=== PATIENT | female | born 1960 | race Caucasian/White ===

== ENCOUNTER 2018-12-09 17:00 | Inpatient (IN) | payer BC ==
[~2018-12-09] VITALS: Ht 165.1 cm; Wt 55.2 kg
[2018-12-09 17:00] VITALS: Ht 165.1 cm; Wt 55.2 kg
[~2018-12-09 17:00] MED LIST: ACET325T45 PO; AMIN30LI PO; ATOR10TA65 PO; BISA10SU55 RC; CALC667C PO; CAND8TAB4 PO; CHOL100062 PO; CLON-379 PO; FOLI0.8T2 PO; HYDR-4011 PO; INSU100C SQ; INSU100I33 SC; IPRA3AMP29 INHALATION; MAGN400O19 PO; METO-319 PO; NA P133E39 RC; NITR0.4T32 SL; OMEP20CA17 PO; SODI1TAB2 PO; SPIR25TA PO; TELM40TA3 PO
[2018-12-09] MEDS ORDERED: SOD CHLORIDE 0.9% 500 ML IV STA (17:11)
[2018-12-09] MEDS ORDERED: MIDAZOLAM (DRIP) 50 mg/50 mL 50 ML IV STA (17:11)
[2018-12-09] MEDS ORDERED: NORepinephrine 8MG/250 ML (PMX 250 ML IV SCH (17:30)
[2018-12-09] MEDS ORDERED: CALCIUM GLUCONATE 10% 2 GM in DEXTROSE 5% 100 ML IVPB ONE (17:30)
[2018-12-09] MEDS: PIPER-TAZO 3.375 GM IV (PMX) 100 ML IVPB ONE ×2 (17:56→18:43)
[2018-12-09] MEDS ORDERED: VANCOMYCIN 1 GM (PMX) 250 ML IVPB ONE (18:30)
[2018-12-09] MEDS ORDERED: ONDANSETRON 4 MG INJ IV PRN (20:00)
[2018-12-09] MEDS ORDERED: NACL 0.9% 3 ML SYG IV SCH (20:00)
[2018-12-09] MEDS ORDERED: DEXTROSE 50% 50 ML SYRINGE IV PRN ×2 (22:30)
[2018-12-09] MEDS ORDERED: GLUCAGON 1 MG INJ IM PRN (22:30)
[2018-12-09] MEDS ORDERED: GLUCOSE GEL 15 GRAM TUBE BUCCAL PRN (22:30)
[2018-12-09] MEDS ORDERED: GLUCOSE GEL 15 GRAM TUBE PO PRN ×2 (22:30)
[2018-12-10] VITALS (97 sets, daily range): BP systolic 79–169; BP diastolic 45–108; PULSE 52–99; RESP 0–48
[2018-12-10] MEDS ORDERED: MIDAZOLAM (DRIP) 50 mg/50 mL 50 ML IV SCH (01:30)
[2018-12-10] MEDS ORDERED: NORepinephrine 8MG/250 ML (PMX 250 ML IV SCH (01:30)
[2018-12-10] MEDS: PIPER-TAZO 2.25 GM (PMX) 50 ML IVPB SCH ×4 (01:30→22:20)
[2018-12-10] MEDS: ACCU-CHEK XX SCH ×9 (01:46→23:41)
[2018-12-10] MEDS: INSULIN ASPART [NOVOLOG] 3 ML PEN SC SCH ×3 (02:38→09:11)
[2018-12-10] MEDS: PANTOPRAZOLE 40 MG INJ IV SCH (06:06)
[2018-12-10] MEDS ORDERED: ACETAMINOPHEN 650MG/20.3ML CUP PO PRN (13:00)
[2018-12-10] MEDS ORDERED: MEPERIDINE 25 MG INJ IV PRN ×2 (13:00)
[2018-12-10] MEDS ORDERED: DEXTROSE 50% 50 ML SYRINGE IV PRN ×2 (13:00)
[2018-12-10] MEDS ORDERED: ACETAMINOPHEN 650 MG SUPP PR PRN (13:00)
[2018-12-10] MEDS ORDERED: MAGNESIUM SULFATE 2 GM/50 ML 50 ML IVPB PRN (13:00)
[2018-12-10] MEDS ORDERED: POTASSIUM CHLORIDE 50 ML IVPB ONE (13:00)
[2018-12-10] MEDS: ARTIFICIAL TEARS 15 ML OPH BOTH EYES SCH ×5 (15:00→23:38)
[2018-12-10] MEDS: MIDAZOLAM (DRIP) 50 mg/50 mL 50 ML IV SCH (15:05)
[2018-12-10] MEDS: FENTAnyl (DRIP) 1000 mcg/100mL 100 ML IV SCH (15:06)
[2018-12-10] MEDS: VECURONIUM 100 MG in DEXTROSE 5% 100 ML IV SCH (15:41)
[2018-12-10] MEDS ORDERED: OCULAR LUBRICANT 3.5 GM OPH OINT BOTH EYES SCH (18:00)
[2018-12-10] MEDS: OCULAR LUBRICANT 3.5 GM OPH OINT BOTH EYES SCH ×2 (18:17→23:38)
[2018-12-10] MEDS: NORepinephrine 8MG/250 ML (PMX 250 ML IV SCH (20:40)
[2018-12-11] VITALS (95 sets, daily range): BP systolic 43–185; BP diastolic 35–82; PULSE 61–115; RESP 0–24
[2018-12-11] MEDS: ACCU-CHEK XX SCH ×9 (04:04→23:00)
[2018-12-11] MEDS: INSULIN HUMAN REGULAR 100 UNIT in SOD CHLORIDE 0.9% 99 ML IV SCH (05:02)
[2018-12-11] MEDS: PIPER-TAZO 2.25 GM (PMX) 50 ML IVPB SCH ×3 (06:11→21:24)
[2018-12-11] MEDS: ARTIFICIAL TEARS 15 ML OPH BOTH EYES SCH ×4 (06:12→23:58)
[2018-12-11] MEDS: OCULAR LUBRICANT 3.5 GM OPH OINT BOTH EYES SCH ×4 (06:12→23:58)
[2018-12-11] MEDS: PANTOPRAZOLE 40 MG INJ IV SCH (06:12)
[2018-12-11] MEDS: VECURONIUM 100 MG in DEXTROSE 5% 100 ML IV SCH (09:42)
[2018-12-11] MEDS ORDERED: ACETAMINOPHEN 650MG/20.3ML CUP PO SCH (13:00)
[2018-12-11] MEDS: ACETAMINOPHEN 650 MG SUPP PR SCH ×2 (13:00→20:16)
[2018-12-11] MEDS ORDERED: ASPIRIN 81 MG TAB PO SCH (20:00)
[2018-12-11] MEDS ORDERED: ATORVASTATIN 20 MG TAB PO SCH (21:00)
[2018-12-11] MEDS ORDERED: ACETAMINOPHEN 650MG/20.3ML CUP NGT PRN (21:00)
[2018-12-11] MEDS: ATORVASTATIN 20 MG TAB NGT SCH (21:24)
[2018-12-11] MEDS: MIDAZOLAM (DRIP) 50 mg/50 mL 50 ML IV SCH (23:21)
[2018-12-11] MEDS: NORepinephrine 8MG/250 ML (PMX 250 ML IV SCH (23:59)
[2018-12-12] VITALS (118 sets, daily range): BP systolic 44–181; BP diastolic 28–129; PULSE 65–116; RESP 0–28
[2018-12-12] MEDS: ACCU-CHEK XX SCH ×24 (00:31→23:00)
[2018-12-12] MEDS: ACETAMINOPHEN 650 MG SUPP PR SCH ×4 (01:00→18:12)
[2018-12-12] MEDS: ACETAMINOPHEN 650MG/20.3ML CUP NGT SCH ×4 (01:42→18:11)
[2018-12-12] MEDS: PANTOPRAZOLE 40 MG INJ IV SCH (05:22)
[2018-12-12] MEDS: PIPER-TAZO 2.25 GM (PMX) 50 ML IVPB SCH ×3 (05:22→23:03)
[2018-12-12] MEDS: OCULAR LUBRICANT 3.5 GM OPH OINT BOTH EYES SCH ×4 (05:22→23:49)
[2018-12-12] MEDS: ARTIFICIAL TEARS 15 ML OPH BOTH EYES SCH ×4 (05:22→23:49)
[2018-12-12] MEDS: FENTAnyl (DRIP) 1000 mcg/100mL 100 ML IV SCH (08:36)
[2018-12-12] MEDS: ASPIRIN 81 MG TAB NGT SCH (10:12)
[2018-12-12] MEDS: VECURONIUM 100 MG in DEXTROSE 5% 100 ML IV SCH (12:07)
[2018-12-12] MEDS: INSULIN HUMAN REGULAR 100 UNIT in SOD CHLORIDE 0.9% 99 ML IV SCH (18:23)
[2018-12-12] MEDS ORDERED: HEPARIN 1000 UNITS/ML 10 ML INJ CATHETER ONE (21:00)
[2018-12-12] MEDS ORDERED: ALBUMIN HUMAN 25% 100 ML IV ONE (21:00)
[2018-12-12] MEDS: ATORVASTATIN 20 MG TAB NGT SCH (23:48)
[2018-12-13] VITALS (109 sets, daily range): BP systolic 75–159; BP diastolic 8–85; PULSE 62–108; RESP 0–31
[2018-12-13] MEDS: ACCU-CHEK XX SCH ×11 (01:34→09:53)
[2018-12-13] MEDS: PIPER-TAZO 2.25 GM (PMX) 50 ML IVPB SCH ×3 (06:24→22:21)
[2018-12-13] MEDS: PANTOPRAZOLE 40 MG INJ IV SCH (06:25)
[2018-12-13] MEDS: OCULAR LUBRICANT 3.5 GM OPH OINT BOTH EYES SCH ×3 (06:29→17:07)
[2018-12-13] MEDS: ARTIFICIAL TEARS 15 ML OPH BOTH EYES SCH ×3 (06:29→17:07)
[2018-12-13] MEDS: ASPIRIN 81 MG TAB NGT SCH (09:49)
[2018-12-13] MEDS ORDERED: ATROPINE 1 MG/10 ML SYRINGE ONE (15:09)
[2018-12-13] MEDS ORDERED: DOPamine-D5W 1.6 MG/ML 250 ML ONE (15:15)
[2018-12-13] MEDS: NORepinephrine 8MG/250 ML (PMX 250 ML IV SCH (15:25)
[2018-12-13] MEDS ORDERED: DOPamine-D5W 1.6 MG/ML 250 ML IV SCH (18:00)
[2018-12-13] MEDS: ATORVASTATIN 20 MG TAB NGT SCH (20:50)
[2018-12-14] VITALS (88 sets, daily range): BP systolic 87–142; BP diastolic 34–75; PULSE 64–87; RESP 0–28
[2018-12-14] MEDS: OCULAR LUBRICANT 3.5 GM OPH OINT BOTH EYES SCH ×4 (00:14→17:23)
[2018-12-14] MEDS: ARTIFICIAL TEARS 15 ML OPH BOTH EYES SCH ×4 (00:14→17:23)
[2018-12-14] MEDS: PANTOPRAZOLE 40 MG INJ IV SCH (05:22)
[2018-12-14] MEDS: PIPER-TAZO 2.25 GM (PMX) 50 ML IVPB SCH ×3 (05:22→22:17)
[2018-12-14] MEDS: ASPIRIN 81 MG TAB NGT SCH (07:42)
[2018-12-14] MEDS ORDERED: ALBUMIN HUMAN 25% 100 ML IV PRN (09:00)
[2018-12-14] MEDS: NORepinephrine 8MG/250 ML (PMX 250 ML IV SCH (16:27)
[2018-12-14] MEDS: ATORVASTATIN 20 MG TAB NGT SCH (20:07)
[2018-12-15] VITALS (85 sets, daily range): BP systolic 87–147; BP diastolic 37–57; PULSE 52–115; RESP 13–34
[2018-12-15] MEDS: ARTIFICIAL TEARS 15 ML OPH BOTH EYES SCH ×4 (01:37→18:39)
[2018-12-15] MEDS: OCULAR LUBRICANT 3.5 GM OPH OINT BOTH EYES SCH ×4 (01:37→18:39)
[2018-12-15] MEDS: PANTOPRAZOLE 40 MG INJ IV SCH (06:02)
[2018-12-15] MEDS: PIPER-TAZO 2.25 GM (PMX) 50 ML IVPB SCH ×3 (06:09→21:20)
[2018-12-15] MEDS: ASPIRIN 81 MG TAB NGT SCH (08:01)
[2018-12-15] MEDS: MIDODRINE 5 MG TAB PO SCH (17:00)
[2018-12-15] MEDS: ATORVASTATIN 20 MG TAB NGT SCH (21:19)
[2018-12-16] VITALS (74 sets, daily range): BP systolic 63–172; BP diastolic 36–78; PULSE 40–87; RESP 0–28
[2018-12-16] MEDS: PIPER-TAZO 2.25 GM (PMX) 50 ML IVPB SCH ×2 (05:37→14:01)
[2018-12-16] MEDS: PANTOPRAZOLE 40 MG INJ IV SCH (05:37)
[2018-12-16] MEDS: NORepinephrine 8MG/250 ML (PMX 250 ML IV SCH (08:43)
[2018-12-16] MEDS: MIDODRINE 5 MG TAB PO SCH ×3 (11:33→16:49)
[2018-12-16] MEDS: ASPIRIN 81 MG TAB NGT SCH (11:33)
[2018-12-16] MEDS ORDERED: LORAZEPAM 2 MG INJ IV PRN (17:30)
[2018-12-16] MEDS ORDERED: ATROPINE 1% 5 ML OPH SL PRN (17:30)
[2018-12-16] MEDS ORDERED: morphine 2 MG INJ IV STA (17:58)
[2018-12-16] MEDS ORDERED: morphine (DRIP) 100 MG/100 ML 100 ML IV SCH (18:00)
== END 2018-12-16 18:30 | disposition expired | DRG 296 ==
LOC: E/R 17:00 → ICU 18:55
PROVIDERS: ADMIT Internal Medicine; ATTEND Internal Medicine
PROC: 5A1955Z Respiratory Ventilation, Greater than 96 Consecutive Hours (ICD-10-PCS; principal; 2018-12-09)
PROC: 0BH17EZ Insertion of Endotracheal Airway into Trachea, Via Natural or Artificial Opening (ICD-10-PCS; 2018-12-09)
PROC: 5A12012 Performance of Cardiac Output, Single, Manual (ICD-10-PCS; 2018-12-09)
PROC: 06HY33Z Insertion of Infusion Device into Lower Vein, Percutaneous Approach (ICD-10-PCS; 2018-12-09)
PROC: 5A1D70Z Performance of Urinary Filtration, Intermittent, Less than 6 Hours Per Day (ICD-10-PCS; 2018-12-12)
DX: I46.9 Cardiac arrest, cause unspecified (principal); N18.6 End stage renal disease; J96.91 Respiratory failure, unspecified with hypoxia; J96.92 Respiratory failure, unspecified with hypercapnia; J90 Pleural effusion, not elsewhere classified; R57.9 Shock, unspecified; G93.1 Anoxic brain damage, not elsewhere classified; T82.868A Thrombosis due to vascular prosthetic devices, implants and grafts, initial encounter; I12.0 Hypertensive chronic kidney disease with stage 5 chronic kidney disease or end stage renal disease; D63.8 Anemia in other chronic diseases classified elsewhere; D69.6 Thrombocytopenia, unspecified; E78.5 Hyperlipidemia, unspecified; E11.22 Type 2 diabetes mellitus with diabetic chronic kidney disease; E11.65 Type 2 diabetes mellitus with hyperglycemia; E11.319 Type 2 diabetes mellitus with unspecified diabetic retinopathy without macular edema; H54.8 Legal blindness, as defined in USA; I34.0 Nonrheumatic mitral (valve) insufficiency; I25.10 Atherosclerotic heart disease of native coronary artery without angina pectoris; Z51.5 Encounter for palliative care; Z99.2 Dependence on renal dialysis; Z79.4 Long term (current) use of insulin
CPT/HCPCS: 31500; 36600; 70450; 71045; 76942; 78606; 80048; 80053; 80061; 80076; 82150; 82550; 82553; 82803; 82947; 82962; 83036; 83605; 83615; 83690; 83735; 84100; 84443; 84484; 85025; 85378; 85384; 85610; 85730; 87070; 87081; 87340; 89220; 90935; 92950; 93005; 93306; 93931; 94002; 94003; 94770; 95819; 96361; 96374; 96375; A9512; C9113; J0461; J0610; J1265; J1644; J1815; J2060; J2250; J2270; J2543; J3010; J3370; J7040; P9047